=== PATIENT | male | born 1975 | race Caucasian/White ===

== ENCOUNTER 2024-08-07 08:35 | Outpatient (CLI) | payer MEDICAID, SELFPAY ==
[2024-08-07 16:30] LABS: Basophils # 0.1 K/mm3 (0-0.2); Eosinophils # 0.4 K/mm3 (0.0-0.4); Eosinophils % 4.5 % (0.1-12.0); Hematocrit 46.3 % (42.0-52.0); Hemoglobin 15.7 g/dL (14.1-18.0); Lymphocytes # 2.6 K/mm3 (0.7-4.5); Mean Corpuscular Hemoglobin 31.1 pg (27.0-31.2); Mean Corpuscular Volume 91.4 fl (80-94); Mean Platelet Volume 9.6 fl (7.4-10.4); Monocytes # 0.5 K/mm3 (0.1-1.0); Monocytes % 6.6 % (1.7-9.3); Neutrophils # 4.7 K/mm3 (1.8-7.8); Platelet Count 186 K/mm3 (142-424); Red Blood Count 5.07 M/mm3 (4.60-6.20); White Blood Count 8.3 K/mm3 (4.8-10.8)
[2024-08-07 17:11] LABS: Albumin Level 4.6 g/dl (3.5-5.0); Chloride 106 mmol/L (98-107); Potassium 5.1 mmoL/L (3.5-5.1); Sodium 135 mmol/L (136-145)
[2024-08-07 17:13] LABS: Blood Urea Nitrogen 14 mg/dl (9-20); Estimated Glomerular Filt Rate 104 ml/min (>60); GFR (African American) 126 ML/MIN (>60)
[2024-08-07 17:14] LABS: Alanine Aminotransferase 77 U/L (12-78); Albumin/Globulin Ratio 1.8 (1.1-1.8); Alkaline Phosphatase 59 U/L (38-126); Anion Gap 11.1 mEq/L (5-15); Aspartate Amino Transferase 103 U/L (17-59); Bilirubin,Total 1.6 mg/dl (0.2-1.3); Calcium 9.4 mg/dl (8.4-10.2); Carbon Dioxide 23 mmol/L (22.0-30.0); Cholesterol 132 mg/dl (140-200); Globulin 2.6 g/dL (1.3-3.2); Glucose 68 mg/dl (74-100); Total Protein,Serum 7.2 g/dl (6.3-8.2); Triglycerides 109 mg/dl (30-150); VLDL Cholesterol 22 mg/dL (0-40)
[2024-08-07 17:15] LABS: HDL Cholesterol 44 mg/dl (40-60)
[2024-08-07 17:25] LABS: Direct LDL Cholesterol 64.11 mg/dL (100-129)
[2024-08-07 17:45] LABS: Thyroid Stimulating Hormone 2.72 uIU/mL (0.465-4.68)
[2024-08-08 16:55] LABS: HIV Combo NEGATIVE (Negative)
[2024-08-11 12:23] LABS: HCV Ab Reactive (Non Reactive)
[2024-09-01 09:48] LABS: PDF: SCANNED IMAGE
== END 2024-08-07 23:59 | disposition home or self-care (01) ==
LOC: LAB.DROPOF 08-08 15:09
PROVIDERS: PCP Family Medicine; Visit Provider Family Medicine
DX: B19.20 Unspecified viral hepatitis C without hepatic coma (principal); F41.9 Anxiety disorder, unspecified
CPT/HCPCS: 80050; 80053; 80061; 84443; 85025; 86803; 87389; 87522

== ENCOUNTER 2024-08-15 20:05 | Outpatient (CLI) | payer MEDICAID, SELFPAY ==
[2024-08-15 21:32] LABS: HIV Combo NEGATIVE (Negative)
== END 2024-08-15 23:59 | disposition home or self-care (01) ==
LOC: LAB.DROPOF 20:06
PROVIDERS: PCP Family Medicine; Visit Provider Family Medicine
DX: B19.20 Unspecified viral hepatitis C without hepatic coma (principal)
CPT/HCPCS: 87389

== ENCOUNTER 2024-09-27 13:33 | Outpatient (CLI) | payer MEDICAID, SELFPAY ==
[2024-09-27 14:05] LABS: INR 0.94 (0.9-1.1); Prothrombin Time 10.4 seconds (9.2-12.1)
[2024-09-28 10:12] LABS: Hep A Ab, Total Negative (Negative); Hep B Core Ab, Total Positive (Negative); Hep B Surface Ab, Qual Reactive (.); Hepatitis B Surface Antigen Negative (Negative)
[2024-10-02 23:08] LABS: Hepatitis C Genotype 1a (.)
== END 2024-09-27 23:59 | disposition home or self-care (01) ==
LOC: LAB 13:34
PROVIDERS: PCP Family Medicine; Visit Provider Family Medicine
DX: B19.20 Unspecified viral hepatitis C without hepatic coma (principal)
CPT/HCPCS: 85610; 86704; 86706; 86708; 87340; 87902

== ENCOUNTER 2025-01-16 13:21 | Outpatient (CLI) | payer MEDICAID, SELFPAY | END 2025-01-16 23:59 | disposition home or self-care (01) | LOC: LAB.DROPOF 01-20 11:23 | PROVIDERS: PCP Family Medicine; Visit Provider Nurse Practitioner Family | DX: R50.9 Fever, unspecified (principal) | CPT/HCPCS: 87070; 87077; 87186 ==

== ENCOUNTER 2025-01-29 11:42 | Outpatient (CLI) | payer MEDICAID, SELFPAY ==
[2025-01-29 12:30] LABS: Alanine Aminotransferase 10 U/L (12-78); Albumin Level 4.1 g/dl (3.5-5.0); Albumin/Globulin Ratio 1.5 (1.1-1.8); Alkaline Phosphatase 61 U/L (38-126); Anion Gap 10.4 mEq/L (5-15); Aspartate Amino Transferase 24 U/L (17-59); Bilirubin,Total 0.9 mg/dl (0.2-1.3); Blood Urea Nitrogen 6 mg/dl (9-20); Calcium 9.1 mg/dl (8.4-10.2); Carbon Dioxide 29 mmol/L (22.0-30.0); Chloride 106 mmol/L (98-107); Estimated Glomerular Filt Rate 144 ml/min (>60); GFR (African American) 175 ML/MIN (>60); Globulin 2.7 g/dL (1.3-3.2); Glucose 92 mg/dl (74-100); Potassium 4.4 mmoL/L (3.5-5.1); Sodium 141 mmol/L (136-145); Total Protein,Serum 6.8 g/dl (6.3-8.2)
[2025-01-30 05:13] LABS: Hep Be Ag Negative (Negative); Hepatitis Be Antibody Non Reactive (Negative)
[2025-01-31 13:10] LABS: HBV IU/mL HBV DNA not detected IU/mL (.)
[2025-02-03 15:11] LABS: ALT (SGPT) P5P 6 IU/L (0-55); Alpha 2-Macroglobulins, Qn 276 mg/dL (110-276); Apolipoprotein A-1 136 mg/dL (101-178); Bilirubin, Total 0.2 mg/dL (0.0-1.2); Fibrosis Score 0.12 (0.00-0.21); GGT 9 IU/L (0-65); Haptoglobin 185 mg/dL (23-355); Necroinflammat Activity Grade A0-No activity (.); Necroinflammat Activity Score 0.01 (0.00-0.17)
== END 2025-01-29 23:59 | disposition home or self-care (01) ==
LOC: LAB 11:42
PROVIDERS: PCP Family Medicine; Visit Provider Nurse Practitioner Family
DX: B19.20 Unspecified viral hepatitis C without hepatic coma (principal)
CPT/HCPCS: 36415; 80053; 81596; 82247; 82977; 83521; 84460; 86707; 87350; 87517; 87522